=== PATIENT | female | born 1990 | race Caucasian/White ===

== ENCOUNTER 2019-04-11 13:48 | Outpatient (CLI) | payer MEDICAID ==
[2019-04-11] MEDS: TERBUTALINE 1 MG/ML INJ SC (16:33)
[2019-04-11] MEDS: LACTATED RINGER'S 1,000 ML IV (16:33)
== END 2019-04-11 20:22 | disposition home or self-care (01) ==
LOC: OBT 13:48 → L-D 13:48 → OBT 20:22
DX: O47.1 False labor at or after 37 completed weeks of gestation (principal); Z3A.38 38 weeks gestation of pregnancy
CPT/HCPCS: 76818; 96360; 96361

== ENCOUNTER 2019-04-16 05:45 | Inpatient (IN) | payer MEDICAID ==
[2019-04-16] MEDS ORDERED: METHYLERGONOVINE 0.2 MG INJ IM ×2 (06:00→09:00)
[2019-04-16] MEDS ORDERED: CARBOPROST 250 MCG INJ IM ×2 (06:00→09:00)
[2019-04-16] MEDS ORDERED: MISOPROSTOL 200 MCG TAB PR ×2 (06:00→09:00)
[2019-04-16] MEDS ORDERED: CEFAZOLIN 2 GM/50 ML (PMX) 50 ML IVPB (06:00)
[2019-04-16 06:22] LABS: ADD MAN DIFF? NO
[2019-04-16] MEDS: LACTATED RINGER'S 1,000 ML IV (06:33)
[2019-04-16 06:37] LABS: BASOPHILS % 0.3 % (0.0-2.0); EOSINOPHILS # 0.1 10^3/ul (0.0-0.5); EOSINOPHILS % 0.7 % (0.0-7.0); HEMATOCRIT 39.2 % (37.0-47.0); HEMOGLOBIN 12.7 g/dl (12.0-16.0); LYMPHOCYTES # 2.4 10^3/ul (0.8-2.9); LYMPHOCYTES % 25.1 % (15.0-51.0); MEAN CORPUSCULAR HGB CONC 32.4 g/dl (32.0-37.0); MEAN CORPUSCULAR VOLUME 89.5 fl (82.0-101.0); MEAN PLATELET VOLUME 11.5 fl (7.4-10.4); MONOCYTE # 0.6 10^3/ul (0.3-0.9); MONOCYTES % 6.3 % (0.0-11.0); NEUTROPHIL # 6.3 10^3/ul (1.6-7.5); NEUTROPHILS % 66.4 % (39.0-77.0); PLATELET COUNT 203 10^3/UL (140-415); RED BLOOD COUNT 4.38 10^6/ul (4.20-5.40); RED CELL DISTRIBUTION WIDTH 14.1 % (11.5-14.5)
[2019-04-16 06:37] LABS: WHITE BLOOD COUNT 9.5 10^3/ul (4.8-10.8)
[2019-04-16 06:46] LABS: INR 0.88; PT RATIO 0.9
[2019-04-16 06:47] LABS: PARTIAL THROMBOPLASTIN TIME 27.3 Sec (23.0-35.0)
[2019-04-16] MEDS ORDERED: OXYTOCIN 30 UNITS/LR 500 ML BAG IV (07:19)
[2019-04-16] MEDS ORDERED: CITRIC ACID/NA CITRATE 30 ML CUP (07:20)
[2019-04-16] MEDS ORDERED: ONDANSETRON 4 MG INJ (07:20)
[2019-04-16] MEDS: ONDANSETRON 4 MG INJ IV ×2 (07:27→16:23)
[2019-04-16] MEDS: CITRIC ACID/NA CITRATE 30 ML CUP PO (07:27)
[2019-04-16] MEDS ORDERED: OXYTOCIN 10 UNIT INJ (07:49)
[2019-04-16] MEDS ORDERED: morphine SULFATE/PF (10 MG/10 ML) INJ (07:49)
[2019-04-16] MEDS ORDERED: PHENYLephrine (100 MCG/ML) 10ML SYG (07:49)
[2019-04-16] MEDS ORDERED: NALBUPHINE HCL (10 MG/1 ML) INJ IV (08:30)
[2019-04-16] MEDS ORDERED: DIPHENHYDRAMINE 50 MG INJ IV (08:30)
[2019-04-16] MEDS ORDERED: HYDROCODONE/APAP (5/325) TAB PO (08:30)
[2019-04-16] MEDS ORDERED: NALOXONE (0.4 MG/ML) INJ IV ×2 (08:30→11:00)
[2019-04-16] MEDS ORDERED: KETOROLAC 30 MG INJ (08:30)
[2019-04-16] MEDS ORDERED: ACETAMINOPHEN 500 MG TAB PO (08:30)
[2019-04-16] MEDS ORDERED: morphine 2 MG INJ IV ×2 (08:30)
[2019-04-16] MEDS ORDERED: METOCLOPRAMIDE 10 MG INJ (08:30)
[2019-04-16] MEDS ORDERED: HYDROmorphONE 0.5 MG/0.5 ML SYG IV ×2 (08:30)
[2019-04-16] MEDS ORDERED: DEXAMETHASONE 4 MG/ML 1 ML INJ (08:30)
[2019-04-16] MEDS ORDERED: OXYTOCIN 30 UNITS/LR 500 ML IV (09:00)
[2019-04-16] MEDS ORDERED: NACL 0.9% 3 ML SYG IV (09:00)
[2019-04-16 09:21] LABS: HEPATITIS B SURFACE ANTIGEN NEGATIVE (NEGATIVE)
[2019-04-16] MEDS: OXYTOCIN 30 UNITS/LR 500 ML IV ×2 (10:20→14:14)
[2019-04-16] MEDS ORDERED: TRIMETHOBENZAMIDE 100 MG/ML VIAL IM (11:00)
[2019-04-16] MEDS ORDERED: EPHEDrine 25 MG/5 ML SYG IV (11:00)
[2019-04-16] MEDS: DIPHENHYDRAMINE 50 MG INJ IV (11:10)
[2019-04-16] MEDS: CEFAZOLIN 2 GM/50 ML (PMX) 50 ML IVPB ×2 (12:00→17:32)
[2019-04-16 22:02] LABS: RAPID PLASMA REAGIN NONREACTIVE (NR)
[2019-04-17] MEDS: CEFAZOLIN 2 GM/50 ML (PMX) 50 ML IVPB (01:10)
[2019-04-17] MEDS: LACTATED RINGER'S 1,000 ML IV ×3 (01:18→17:30)
[2019-04-17] MEDS: KETOROLAC 30 MG INJ IV (07:16)
[2019-04-17 09:02] LABS: ADD MAN DIFF? NO
[2019-04-17 09:07] LABS: WHITE BLOOD COUNT 10.8 10^3/ul (4.8-10.8)
[2019-04-17 09:07] LABS: BASOPHILS % 0.3 % (0.0-2.0); EOSINOPHILS % 0.2 % (0.0-7.0); HEMATOCRIT 29.6 % (37.0-47.0); HEMOGLOBIN 9.5 g/dl (12.0-16.0); LYMPHOCYTES # 2.4 10^3/ul (0.8-2.9); LYMPHOCYTES % 22.7 % (15.0-51.0); MEAN CORPUSCULAR HEMOGLOBIN 29.2 pg (29.0-33.0); MEAN CORPUSCULAR HGB CONC 32.1 g/dl (32.0-37.0); MEAN CORPUSCULAR VOLUME 91.1 fl (82.0-101.0); MEAN PLATELET VOLUME 11.9 fl (7.4-10.4); MONOCYTE # 0.6 10^3/ul (0.3-0.9); MONOCYTES % 5.8 % (0.0-11.0); NEUTROPHIL # 7.6 10^3/ul (1.6-7.5); NEUTROPHILS % 70.1 % (39.0-77.0); PLATELET COUNT 186 10^3/UL (140-415); RED BLOOD COUNT 3.25 10^6/ul (4.20-5.40); RED CELL DISTRIBUTION WIDTH 14.3 % (11.5-14.5)
[2019-04-17] MEDS: OXYCODONE/ACETAMINOPHEN (5/325) TAB PO ×2 (17:43→22:56)
[2019-04-18] MEDS: LACTATED RINGER'S 1,000 ML IV ×2 (01:30→09:30)
[2019-04-18] MEDS: OXYCODONE/ACETAMINOPHEN (5/325) TAB PO ×4 (04:15→19:19)
[2019-04-18] MEDS: LANOLIN HPA 1 PKT TOP (09:52)
[2019-04-18] MEDS: IBUPROFEN 600 MG TAB PO (23:37)
[2019-04-19] MEDS: IBUPROFEN 600 MG TAB PO (06:15)
[2019-04-19 10:25] LABS: HEMATOCRIT 34.6 % (37.0-47.0); HEMOGLOBIN 10.8 g/dl (12.0-16.0)
[2019-04-19] MEDS ORDERED: IBUPROFEN 600 MG TAB PO (12:00)
== END 2019-04-19 15:07 | disposition home or self-care (01) | DRG 788 ==
LOC: L-D 05:45 → PP1 12:09
PROVIDERS: Obstetrics & Gynecology
PROC: 10D00Z1 Extraction of Products of Conception, Low, Open Approach (ICD-10-PCS; principal; 2019-04-16 07:30)
DX: O65.5 Obstructed labor due to abnormality of maternal pelvic organs (principal); O34.211 Maternal care for low transverse scar from previous cesarean delivery; Z3A.39 39 weeks gestation of pregnancy; Z37.0 Single live birth
CPT/HCPCS: 85014; 85018; 85025; 85610; 85730; 86592; 86850; 86900; 86901; 87340; 99464